=== PATIENT | male | born 1940 | race Caucasian/White ===

== ENCOUNTER → 2024-08-18 | Outpatient (CLI) | payer MEDICARE, SELFPAY ==
[2024-08-18 11:26] LABS: Basophils # (Auto) 0.1 Thou/mm3 (0.0-0.2); Basophils % (Auto) 1 % (0-2.5); Eosinophils # (Auto) 0.2 Thou/mm3 (0.0-0.5); Eosinophils % (Auto) 3 % (0-10); Hematocrit 45.6 % (41.0-53.0); Hemoglobin 15.1 g/dL (13.5-16.0); Immature Granulocytes % (Auto) 0 % (0-0); Immature Granulocytes Auto 0.02 Thou/mm3 (0.00-0.00); Lymphocytes # (Auto) 1.3 Thou/mm3 (1.0-4.8); Lymphocytes % (Auto) 22 % (10-50); Mean Corpuscular HGB Conc 33.1 g/dl (31.0-37.0); Mean Corpuscular Hemoglobin 29.8 pg (25.0-35.0); Mean Corpuscular Volume 90 fL (80-100); Monocytes # (Auto) 0.6 Thou/mm3 (0.0-0.8); Monocytes % (Auto) 9 % (0-12); Neutrophils # (Auto) 3.9 Thou/mm3 (1.8-7.7); Neutrophils % (Auto) 65 % (37-80); Nucleated Red Blood Cell % 0 /100 WBC (0); Platelet Count 229 Thou/mm3 (140-440); RDW Standard Deviation 45.8 fL (35.1-43.9); Red Blood Count 5.06 Miln/mm3 (4.50-5.90); White Blood Count 6.1 Thou/mm3 (3.8-10.6)
[2024-08-18 11:45] LABS: Alanine Aminotransferase 12 U/L (10-49); Albumin, Serum 4.5 gm/dL (3.4-4.8); Albumin/Globulin Ratio 2.3 (1.2-2.2); Alkaline Phosphatase 63 U/L (46-116); Anion Gap 6 (7-16); Aspartate Amino Transferase 19 U/L (0-34); BUN/Creatinine Ratio 22 Ratio (12-20); Bilirubin,Total 0.5 mg/dL (0.3-1.2); Blood Urea Nitrogen 26 mg/dL (9-23); Calcium 9.8 mg/dL (8.3-10.6); Calcium (Corrected) 9.8 mg/dL (8.5-10.1); Carbon Dioxide 31.2 mMol/L (20.0-31.0); Cardiac Risk Estimate 2.8 RATIO (4.0-6.7); Chloride 104 mMol/L (98-107); Cholesterol 116 mg/dL (132-200); Creatinine (Component) 1.2 mg/dL (0.6-1.3); Glucose 99 mg/dL (74-106); HDL Cholesterol 41 mg/dL (40-60); LDL Cholesterol,Calculated 55 mg/dL (0-130); Osmolality,Calculated 285 (275-295); Potassium 4.8 mMol/L (3.4-5.1); Sodium 141 mMol/L (136-145); Total Protein 6.5 gm/dL (5.7-8.2); Triglycerides 100 mg/dL (30-150); eGFR 60 See Note
[2024-08-24 11:22] LABS: PSA, Free 0.29 ng/mL; PSA, Total 0.6 ng/mL (< OR = 4.0)
== END | disposition home or self-care (01) ==
LOC: COPL 10:18
PROVIDERS: PCP Family Medicine; Referring Provider Family Medicine; Visit Provider Family Medicine
DX: Z00.01 Encounter for general adult medical examination with abnormal findings (principal); I10 Essential (primary) hypertension; N40.1 Benign prostatic hyperplasia with lower urinary tract symptoms; R39.15 Urgency of urination; E78.5 Hyperlipidemia, unspecified; R53.83 Other fatigue
CPT/HCPCS: 36415; 80053; 80061; 84153; 84154; 85025

== ENCOUNTER → 2025-03-19 | Outpatient (CLI) | payer MEDICARE, SELFPAY ==
[2025-03-19 09:51] LABS: Alanine Aminotransferase 9 U/L (10-49); Albumin, Serum 4.3 gm/dL (3.4-4.8); Albumin/Globulin Ratio 2.0 (1.2-2.2); Alkaline Phosphatase 66 U/L (46-116); Anion Gap 5 (7-16); Aspartate Amino Transferase 15 U/L (0-34); BUN/Creatinine Ratio 22 Ratio (12-20); Bilirubin,Total 0.6 mg/dL (0.3-1.2); Blood Urea Nitrogen 28 mg/dL (9-23); Calcium 10.0 mg/dL (8.3-10.6); Calcium (Corrected) 10.0 mg/dL (8.5-10.1); Carbon Dioxide 30.7 mMol/L (20.0-31.0); Chloride 109 mMol/L (98-107); Creatinine (Component) 1.3 mg/dL (0.6-1.3); Globulin 2.2 gm/dL (2.3-3.5); Glucose 110 mg/dL (74-106); Osmolality,Calculated 295 (275-295); Potassium 5.0 mMol/L (3.4-5.1); Sodium 145 mMol/L (136-145); Total Protein 6.5 gm/dL (5.7-8.2); eGFR 54 See Note
== END | disposition home or self-care (01) ==
LOC: COPL 08:30
PROVIDERS: PCP Family Medicine; Referring Provider Family Medicine; Visit Provider Family Medicine
DX: E11.9 Type 2 diabetes mellitus without complications (principal)
CPT/HCPCS: 36415; 80053

== ENCOUNTER 2025-05-12 01:01 | Emergency (ER) | payer MEDICARE, SELFPAY ==
[2025-05-12] VITALS (7 sets, daily range): BP systolic 139–141; BP diastolic 78–84; PULSE 75–90; RESP 18–30; TEMP 36.3–39.5; O2SAT 92–96; BMI 38.0
--- NOTE | 2025-05-12 01:12 | XR_ITS ---
Examination: AP chest single view Technique one AP portable semiupright chest single view Date and time: May 12, 2025, 0119 hrs., Comparison November 21, 2015. Indications: Chest pain today. Findings: Normal heart size. Lungs are clear. Prominent osteopenia. Impression: No active disease.
--- NOTE | 2025-05-12 01:15 | PD.EDFALL ---
ED Fall Injury RME/HPI General Chief Complaint: Fall Stated Complaint: FALL Time Seen by Provider: 05/12/25 01:05 Arrival date/time: 05/12/25 01:01 RME / HPI RME / HPI Narrative: DR. WINSTON MAIN ED EVALUATION: 85 y/o wheelchair-bound male with Hx of HTN BIBA from home presents with BL arm pain and tears s/p fall x just [employer]. Patient has now fallen twice. Per EMS, patient hit his head during fall the fall as it is a tight space. Denies any recent illness, but reports cough, sneezing, and suprapubic abdominal pain. No other concerns or complaints expressed at this time. Related Data Home Medications ?Medication ?Instructions ?Recorded ?Confirmed atenolol 25 mg tablet 25 mg PO QDAY ##90 11/21/15 11/11/17 finasteride 5 mg tablet 1 tab PO QDAY ##30 11/21/15 11/11/17 gabapentin 600 mg tablet 2 tab PO BID ##360 11/21/15 11/11/17 fenofibrate nanocrystallized 145 145 mg PO QDAY 90 days #90 tabs 11/11/17 11/11/17 mg tablet hydrocodone 5 mg-acetaminophen 325 1 tab PO Q6H PRN pain 30 days #120 11/11/17 11/11/17 mg tablet tabs sertraline 50 mg tablet 50 mg PO QDAY 11/11/17 11/11/17 tamsulosin 0.4 mg capsule 0.8 mg PO QDAY 11/11/17 11/11/17 Previous Rx's ?Medication ?Instructions ?Recorded acetaminophen 500 mg oral powder 500 mg PO Q6H PRN pain #32 ea 04/05/21 packet (Tylenol Extra Strength) cephalexin 500 mg capsule 1,000 mg (2 x 500 mg) PO BID 7 05/12/25 days #28 caps Allergies Allergy/AdvReac Type Severity Reaction Status Date / Time No Known Allergies Allergy Verified 04/05/21 11:23 Review of Systems Review of Systems Systems Reviewed: All systems reviewed, normal except as documented Past Medical History Past Medical History CARDIAC: Positive Cardiac Disorders and Hypertension GENITOURINARY: Positive Genitourinary Disorders, Kidney Stones and Benign Prostatic Hyperplasia MUSCULOSKELETAL: Positive Musculoskeletal Disorders, Arthritis, Carpal Tunnel Syndrome and Degenerative Joint Disease PSYCHO/SOCIAL: Positive Depression Family History FAMILY HISTORY: Positive Family Cancer Surgical History SURGICAL: Positive Joint Replacement Social History SMOKING STATUS: Current every day smoker ED Exam Narrative Physical exam: Generally patient is alert elderly appearing male in no obvious distress but very hard of hearing. Heart regular rate and rhythm. Lungs clear to auscultation equal bilaterally. Skin is warm pale and dry. Abdomen soft bowel sounds present nondistended very mild suprapubic abdominal tenderness without rebound. Genital exam is a normal male. Musculoskeletal exam no costovertebral angle tenderness. Neurologic exam shows patient to have a Sanjay Coma Scale of 15 but very hard of hearing. Head is normocephalic atraumatic. Eyes pupils equal round reactive to light. Extremities show very superficial small skin tears to bilateral elbows with full range of motion of bilateral elbows without pain Course Quality Measures none Orders Category Date Time Status Bedside COVID-19 Antigen Test NOW Care 05/12/25 01:[address] Screening NOW Care 05/12/25 01:34 Active EKG (ED ONLY) *Do not use* NOW Care 05/12/25 01:13 Completed EKG (ED Only) Stat Exams 05/12/25 01:13 Ordered XR chest 1V portable Stat Exams 05/12/25 01:12 Taken CBC Stat Lab 05/12/25 01:15 Completed CMP [Comprehensive Metabolic Panel] Stat Lab 05/12/25 01:15 Completed FLU A&B [Influenza A & B Rapid Panel] Stat Lab 05/12/25 01:20 Ordered UA [Urinalysis] Stat Lab 05/12/25 01:20 Completed Acetaminophen Tab [Tylenol Tab] Med 05/12/25 01:13 Discontinued 650 mg PO X1 ONE cefTRIAXone/D5w 1gm IV premix [Rocephin/D5w 1gm IV Med 05/12/25 01:39 Discontinued premix] 1 gm in 50 ml IV X1 Vital Signs Vital signs: Vital Signs Temperature 102.3 F H 05/12/25 01:03 Pulse Rate 82 05/12/25 01:03 Respiratory Rate 19 05/12/25 01:03 Blood Pressure 139/84 H 05/12/25 01:03 Pulse Oximetry (%) 92 L 05/12/25 01:03 Oxygen Delivery Method Room Air 05/12/25 01:03 Fall MDM Narrative MDM Narrative:: Scribe Attestation: I, Megan Menchaca, am scribing for and in the presence of Dr. Winston. Provider Notation: Although this document has been carefully reviewed, there may still be some phonetic and other typographical errors. These errors are purely grammatical due to imperfections in the software program and should not be construed in any way to? compromise the substance of the patient's medical care during this visit. Differential diagnosis: Intracerebral injury, musculoskeletal injury, UTI, intra-abdominal infection, pneumonia, viral syndrome I interpreted all labs. Patient had a temperature of 102.3 degrees rectally upon arrival. Patient was unaware of this. He has no specific complaints at this time. He did have some mild suprapubic abdominal tenderness. He admits to mild cough. Chest x-ray showed no infiltrate. White count shows a leukocytosis of 15,000. Urine showed evidence for infection. Patient received Tylenol 650 mg p.o. for the fever. He received Rocephin 1 g IV for the UTI. Patient will be discharged on cephalexin to be taken as prescribed. Blood pressure at discharge is 145/78. I do long discussion with relative at bedside. Patient will be discharged in stable condition. Patient data External records reviewed:: [facility] previous records (No recent ED records available for review.) and EMS form Clinical information provided by:: patient and EMS Social determinants that could affect healthcare access:: none Patient has the following chronic illnesses:: Hypertension, Kidney Stones, Benign Prostatic Hyperplasia, Arthritis, Carpal Tunnel Syndrome, Degenerative Joint Disease, Depression How is presenting disease/condition affected by chronic disease/condition?: exacerbated by Evaluation data The following diagnostics were reviewed and interpreted by me:: lab results, radiology exam(s) and EKG tracing(s) Lab and/or radiology exams considered but not ordered:: None Interpretation Summary: RADIOLOGY Chest X-Ray: Pending official radiology report. Medications / Prescriptions Medications or Prescriptions considered but not ordered:: None Medication administrations:: Medication Administration History Discontinued Medications Acetaminophen (Acetaminophen 325 Mg Tablet) 650 mg PO X1 ONE Stop: 05/12/25 01:14 Last Admin: 05/12/25 01:38 Dose: 650 mg Documented By: JOSS Ceftriaxone Sodium/Dextrose (Rocephin/D5w 1gm Iv Premix) 1 gm in 50 mls @ 100 mls/hr IV X1 ONE Stop: 05/12/25 02:08 See above if any. Consultations Consultation(s) initiated? (list below): No Diagnosis Fall Differential Diagnosis: syncope, dislocation of shoulder region, fracture of wrist, compression fracture, concussion with loss of consciousness and concussion without loss of consciousness Most likely diagnosis given after review of the tests above:: None Admission Indicated Admission indicated?: not indicated Admission Request Was there a request for admission?: No Disposition Plan Disposition Plan: Discharge Discharge Attestation Discharge Attestation: The patient and all family members were given an opportunity to ask questions and understood the discharge instructions. Discharge instructions specifically effects, indications for sooner follow up or return to the emergency department, and the expected course of current diagnosis. Patient condition: Stable Discharge Plan Plan Patient Disposition: HOME (Self Care) Prescriptions/Referrals Prescriptions/Med Rec: New cephalexin 500 mg capsule 1,000 mg PO BID 7 Days Qty: 28 0RF No Action fenofibrate nanocrystallized 145 mg tablet 145 mg PO QDAY 90 Days Qty: 90 Patient Comments: hydrocodone-acetaminophen 5-325 mg tablet 1 tab PO Q6H PRN (Reason: pain) 30 Days Qty: 120 Patient Comments: TK 1 T PO Q 6-8 H PRN tamsulosin 0.4 mg capsule,extended release 24hr 0.8 mg PO QDAY sertraline 50 mg tablet 50 mg PO QDAY gabapentin 600 MG tablet 2 tab PO BID Qty: 360 atenolol 25 MG tablet 25 mg PO QDAY Qty: 90 finasteride 5 MG tablet 1 tab PO QDAY Qty: 30 Tylenol Extra Strength 500 mg powder in packet 500 mg PO Q6H PRN (Reason: pain) Qty: 32 0RF Problem List Clinical Impression: Fall, Skin tear, Acute UTI, Fever Patient/Caregiver Discharge Instructions Education Materials: Urinary Tract Infections in Men Additional Instructions: Take the antibiotic as prescribed. Tylenol for any fever. Follow-up with your doctor. Return to ER as needed or if condition worsens. Print Language: Angolan Stand Alone Forms: [employer] Info., Patient Portal Info Letter
[2025-05-12 01:24] LABS: Basophils # (Auto) 0.1 Thou/mm3 (0.0-0.2); Basophils % (Auto) 0 % (0-2.5); Eosinophils # (Auto) 0.0 Thou/mm3 (0.0-0.5); Eosinophils % (Auto) 0 % (0-10); Hematocrit 45.7 % (41.0-53.0); Hemoglobin 15.1 g/dL (13.5-16.0); Immature Granulocytes Auto 0.09 Thou/mm3 (0.00-0.00); Lymphocytes # (Auto) 1.1 Thou/mm3 (1.0-4.8); Lymphocytes % (Auto) 7 % (10-50); Mean Corpuscular HGB Conc 33.0 g/dl (31.0-37.0); Mean Corpuscular Hemoglobin 30.3 pg (25.0-35.0); Mean Corpuscular Volume 92 fL (80-100); Monocytes # (Auto) 1.5 Thou/mm3 (0.0-0.8); Monocytes % (Auto) 9 % (0-12); Neutrophils # (Auto) 13.2 Thou/mm3 (1.8-7.7); Neutrophils % (Auto) 83 % (37-80); Nucleated Red Blood Cell # 0.00 Thou/mm3 (0.00-0.00); Nucleated Red Blood Cell % 0 /100 WBC (0); Platelet Count 192 Thou/mm3 (140-440); RDW Standard Deviation 45.9 fL (35.1-43.9); Red Blood Count 4.99 Miln/mm3 (4.50-5.90); White Blood Count 15.9 Thou/mm3 (3.8-10.6)
[2025-05-12 01:25] LABS: Collection Type, Urine Voided
[2025-05-12 01:32] LABS: Bilirubin,Urine Negative (Negative); Blood,Urine 3+ (Negative); Budding Yeast,Urine Present; Glucose, Urine Trace (Negative); Ketones,Urine Negative (Negative); Leukocyte Esterase,Urine Positive (Negative); Nitrite,Urine Positive (Negative); PH,Urine 6.0 (5.0-7.0); Protein,Urine 1+ (Neg - Trace); RBC,Urine 94 /hpf (0-3); Specific Gravity,Urine 1.025 (1.001-1.035); Squamous Epithelial Cell,Urine 3 /hpf (0-5); Urobilinogen,Urine Negative mg/dL (0.0-1.0); WBC,Urine 637 /hpf (0-5)
[2025-05-12 01:33] LABS: Clarity,Urine Turbid (Clear/Hazy); Color,Urine Lt-Orange (Lt Yel-Yel)
[2025-05-12] MEDS: ACETAMINOPHEN 325 MG TABLET 650 MG PO (01:38)
[2025-05-12 01:54] LABS: Alanine Aminotransferase < 7 U/L (10-49); Albumin, Serum 4.1 gm/dL (3.4-4.8); Albumin/Globulin Ratio 2.0 (1.2-2.2); Alkaline Phosphatase 44 U/L (46-116); Anion Gap 9 (7-16); Aspartate Amino Transferase 15 U/L (0-34); BUN/Creatinine Ratio 12 Ratio (12-20); Bilirubin,Total 1.2 mg/dL (0.3-1.2); Blood Urea Nitrogen 22 mg/dL (9-23); Calcium 10.1 mg/dL (8.3-10.6); Calcium (Corrected) 10.1 mg/dL (8.5-10.1); Carbon Dioxide 26.8 mMol/L (20.0-31.0); Chloride 105 mMol/L (98-107); Creatinine (Component) 1.8 mg/dL (0.6-1.3); Estimated Creatinine Clearance 36.7 mL/min (>60); Globulin 2.1 gm/dL (2.3-3.5); Glucose 114 mg/dL (74-106); Osmolality,Calculated 285 (275-295); Potassium 4.3 mMol/L (3.4-5.1); Sodium 141 mMol/L (136-145); Total Protein 6.2 gm/dL (5.7-8.2); eGFR 36 See Note
[2025-05-12] MEDS: cefTRIAXone/D5w 1gm IV premix 1 GM/50 ML BAG IV (02:34)
== END 2025-05-12 04:57 | disposition home or self-care (01) ==
LOC: SERX 03:34
PROVIDERS: Emergency Provider Emergency Medicine
DX: S51.012A Laceration without foreign body of left elbow, initial encounter (principal); S51.011A Laceration without foreign body of right elbow, initial encounter; N39.0 Urinary tract infection, site not specified; R07.9 Chest pain, unspecified; R05.9 Cough, unspecified; W19.XXXA Unspecified fall, initial encounter
CPT/HCPCS: 36415; 71045; 80053; 81001; 85025; 87502; 87811; 93005; 96365; 96366; 99283; J0696; A9270

== ENCOUNTER → 2025-08-15 | Outpatient (CLI) | payer MEDICARE, SELFPAY ==
[2025-08-15 09:19] LABS: Collection Type, Urine Clean Catch
[2025-08-15 09:34] LABS: Basophils # (Auto) 0.1 Thou/mm3 (0.0-0.2); Basophils % (Auto) 1 % (0-2.5); Eosinophils # (Auto) 0.2 Thou/mm3 (0.0-0.5); Eosinophils % (Auto) 3 % (0-10); Hematocrit 43.4 % (41.0-53.0); Hemoglobin 14.3 g/dL (13.5-16.0); Immature Granulocytes Auto 0.02 Thou/mm3 (0.00-0.00); Lymphocytes # (Auto) 1.5 Thou/mm3 (1.0-4.8); Lymphocytes % (Auto) 25 % (10-50); Mean Corpuscular HGB Conc 32.9 g/dl (31.0-37.0); Mean Corpuscular Hemoglobin 30.6 pg (25.0-35.0); Mean Corpuscular Volume 93 fL (80-100); Monocytes # (Auto) 0.5 Thou/mm3 (0.0-0.8); Monocytes % (Auto) 9 % (0-12); Neutrophils # (Auto) 3.6 Thou/mm3 (1.8-7.7); Neutrophils % (Auto) 62 % (37-80); Nucleated Red Blood Cell # 0.00 Thou/mm3 (0.00-0.00); Nucleated Red Blood Cell % 0 /100 WBC (0); Platelet Count 192 Thou/mm3 (140-440); RDW Standard Deviation 49.0 fL (35.1-43.9); Red Blood Count 4.68 Miln/mm3 (4.50-5.90); White Blood Count 5.8 Thou/mm3 (3.8-10.6)
[2025-08-15 09:39] LABS: Bilirubin,Urine Negative (Negative); Blood,Urine Negative (Negative); Clarity,Urine Clear (Clear/Hazy); Color,Urine Lt-Yellow (Lt Yel-Yel); Glucose, Urine Negative (Negative); Ketones,Urine Negative (Negative); Leukocyte Esterase,Urine Positive (Negative); Nitrite,Urine Negative (Negative); PH,Urine 6.0 (5.0-7.0); Protein,Urine Negative (Neg - Trace); RBC,Urine 7 /hpf (0-3); Specific Gravity,Urine 1.019 (1.001-1.035); Squamous Epithelial Cell,Urine 1 /hpf (0-5); Urobilinogen,Urine Negative mg/dL (0.0-1.0); WBC,Urine 138 /hpf (0-5)
[2025-08-15 09:47] LABS: Creatinine MALB Rnd Ur 73 mg/dL (30-125); Microalbumin Creat Ratio 15 mg/gCrea (<30); Microalbumin, Random Urine 11 mg/L (0-300)
[2025-08-15 10:03] LABS: Alanine Aminotransferase 11 U/L (10-49); Albumin, Serum 4.4 gm/dL (3.4-4.8); Albumin/Globulin Ratio 1.9 (1.2-2.2); Alkaline Phosphatase 71 U/L (46-116); Anion Gap 8 (7-16); Aspartate Amino Transferase 17 U/L (0-34); BUN/Creatinine Ratio 16 Ratio (12-20); Bilirubin,Total 0.5 mg/dL (0.3-1.2); Blood Urea Nitrogen 22 mg/dL (9-23); Calcium 9.6 mg/dL (8.3-10.6); Calcium (Corrected) 9.6 mg/dL (8.5-10.1); Carbon Dioxide 30.1 mMol/L (20.0-31.0); Cardiac Risk Estimate 2.7 RATIO (4.0-6.7); Chloride 107 mMol/L (98-107); Cholesterol 122 mg/dL (132-200); Creatinine (Component) 1.4 mg/dL (0.6-1.3); Globulin 2.3 gm/dL (2.3-3.5); Glucose 113 mg/dL (74-106); HDL Cholesterol 46 mg/dL (40-60); LDL Cholesterol,Calculated 62 mg/dL (0-130); Osmolality,Calculated 293 (275-295); Potassium 4.9 mMol/L (3.4-5.1); Sodium 145 mMol/L (136-145); Thyroid Stimulating Hormone 1.14 uIU/mL (0.55-4.78); Total Protein 6.7 gm/dL (5.7-8.2); Triglycerides 71 mg/dL (30-150); eGFR 49 See Note
[2025-08-20 15:32] LABS: PSA, Free 0.23 ng/mL; PSA, Total 0.4 ng/mL (< OR = 4.0)
== END | disposition home or self-care (01) ==
PROVIDERS: PCP Family Medicine; Referring Provider Family Medicine; Visit Provider Family Medicine
DX: I10 Essential (primary) hypertension (principal); N40.1 Benign prostatic hyperplasia with lower urinary tract symptoms; R31.9 Hematuria, unspecified; E04.9 Nontoxic goiter, unspecified
CPT/HCPCS: 36415; 80053; 80061; 81001; 82043; 82570; 84153; 84154; 84443; 85025